=== PATIENT | female | born 1950 | race Caucasian/White ===

== ENCOUNTER 2019-01-30 06:29 | Inpatient (IN) | payer MEDICARE, BC ==
[~2019-01-30] VITALS: Ht 165.1 cm; Wt 77.6 kg
--- NOTE | ~2019-01-30 | PROC ---
[facility] [address] [place] [address] PROCEDURE REPORT Name: DESIREE JAMES Room: [address] IN M.R.#: [id number] Admission: 01/30/19 Attend Phys: Daniel Dos Santos Discharge: 02/01/19 Date of : 48 Report #: [id number] THIS REPORT FOR: //name// For GI report, please see the Provation report in Perceptive 7 content. By: 0649Medical Records Staff JAY /MAYA
[~2019-01-30 06:29] MED LIST: AUGMENTIN 875-1 EACH PO; PERCOCET 5-3251 EACH PO; XANAX 0.5 MG0.5 M1 PO
[2019-01-30 06:30] VITALS: BP 108/65
[2019-01-30 06:56] LABS: ABSOLUTE BASOPHILS 0.1 thou/uL (0.0-0.2); ABSOLUTE EOSINOPHILS 0.1 thou/uL (0.0-0.7); ABSOLUTE LYMPHOCYTES 3.6 thou/uL (0.8-5.3); ABSOLUTE MONOCYTES 0.2 thou/uL (0.0-1.2); ABSOLUTE NEUTROPHILS 2.3 thou/uL (1.6-8.1); BASOPHILS 0.8 %; EOSINOPHILS 1.1 %; HEMATOCRIT 45.7 % (37.0-47.0); HEMOGLOBIN 15.3 gm/dL (12.0-15.0); LYMPHOCYTES 58.2 %; MCH 31.8 pg (26.0-34.0); MCHC 33.4 g/dL (28.0-37.0); MCV 95.1 fL (80.0-100.0); MONOCYTES 2.7 %; MPV 6.9 fl. (7.2-11.1); NUCLEATED RBCS 0 /100WBC; PLATELET COUNT* 341 thou/uL (150-400); POLYS 37.2 %; RBC 4.81 mil/uL (4.20-5.00); RDW-CV 13.7 % (10.5-14.5); WBC 6.2 thou/uL (4.0-11.0)
[2019-01-30 07:05] LABS: ALBUMIN 3.2 g/dL (3.4-5.0); CALCIUM 8.8 mg/dL (8.5-10.1); MAGNESIUM 2.2 mg/dL (1.8-2.4); POTASSIUM 3.7 mmol/L (3.5-5.1); TOTAL BILIRUBIN 0.3 mg/dL (<0.1-1.0); TOTAL PROTEIN 6.8 g/dL (6.4-8.2)
[2019-01-30 07:14] LABS: NT-PRO BRAIN NAT PEPTIDE 141 pg/mL (<300); PHOSPHORUS* 5.3 mg/dL (2.5-4.9); TROPONIN-I LEVEL <0.06 ng/mL (<0.06)
[2019-01-30 07:41] LABS: BE -3.1 mmol/L (-2 to +3); PO2 96.5 mmHg (75.0-100.0)
[2019-01-30 07:42] LABS: PCO2 54.4 mmHg (35.0-45.0)
[2019-01-30 07:45] LABS: pH 7.273 (7.340-7.450)
[2019-01-30 09:15] VITALS: BP 132/96
[2019-01-30 09:19] LABS: URINE BILIRUBIN NEGATIVE (Negative); URINE BLOOD 3+ (Negative); URINE CLARITY CLEAR; URINE COLOR YELLOW; URINE GLUCOSE-RANDOM NEGATIVE (Negative); URINE KETONES NEGATIVE (Negative); URINE LEUKOCYTES-REFLEX NEGATIVE (Negative); URINE NITRITE-REFLEX NEGATIVE (Negative); URINE PROTEIN 1+ (Negative); URINE SPECIFIC GRAVITY <= 1.005 (1.005-1.030); URINE UROBILINOGEN 0.2 E.U./dl (0.2-1.0)
[2019-01-30 09:26] LABS: SQUAMOUS 0-3 Few /LPF (0-3)
[2019-01-30 09:27] LABS: BACTERIA-REFLEX None Seen /HPF (None Seen); CASTS None Seen /LPF (None Seen); CRYSTALS None Seen /LPF (None Seen); URINE RBC >20 Many /HPF (0-2); URINE WBC-REFLEX 0-5 Rare /HPF (0-5)
[2019-01-30 09:30] VITALS: BP 136/73
[2019-01-30] MEDS ORDERED: NICOTINE TRANSD21 M1 TRANSDERM (10:22)
[2019-01-30 12:00] VITALS: BP 137/86
--- NOTE | 2019-01-30 13:55 | EKG ---
[place] [address] ELECTROCARDIOGRAM REPORT Name: DESIREE JAMES Room: [address] ADM IN M.R.#: [id number] Admission: 01/30/19 Attend Phys: Daniel Dos Santos Discharge: Date of : 48 Report #: [id number] THIS REPORT FOR: //name// [facility] ED Test Date: 2019-01-30 Test Time: 06:31:26 Pat Name: DESIREE JAMES Department: Room: [facility] Gender: F Manager Provider Relations: See BRAGG : 1950 Requested By: Carl Esteban Order Number: [id number] Ervin MD: Santosh Borrego Measurements Intervals [place] Rate: 126 P: 79 DC: 126 QRS: -42 QRSD: 79 T: 61 QT: 311 QTc: 451 Interpretive Statements Sinus tachycardia Consider right atrial enlargement Left axis deviation Abnormal R-wave progression, early transition Borderline ST depression, diffuse leads No previous ECG available for comparison Electronically Signed On 01-30-2019 13:55:16 CDT by Santosh Borrego [email or web address] <ELECTRONICALLY SIGNED> By: Santosh Borrego MD, [facility] 01/30/19 1355 0631 Santosh Borrego MD, [facility] /EPI
[2019-01-30 14:01] VITALS: BP 154/79
[2019-01-30 18:24] LABS: HEMATOCRIT 40.6 % (37.0-47.0); HEMOGLOBIN 13.6 gm/dL (12.0-15.0); MCH 31.5 pg (26.0-34.0); MCHC 33.4 g/dL (28.0-37.0); MCV 94.4 fL (80.0-100.0); MPV 6.8 fl. (7.2-11.1); RBC 4.31 mil/uL (4.20-5.00); RDW-CV 13.6 % (10.5-14.5); WBC 16.9 thou/uL (4.0-11.0)
[2019-01-30 18:31] LABS: CALCIUM 8.5 mg/dL (8.5-10.1); CREATININE 0.8 mg/dL (0.6-1.3)
[2019-01-30 18:32] LABS: POTASSIUM 4.7 mmol/L (3.5-5.1)
[2019-01-30 22:00] VITALS: BP 150/62
[2019-01-31] VITALS: BP 130/57
[2019-01-31 02:01] VITALS: BP 163/77
[2019-01-31 04:00] VITALS: BP 133/57
[2019-01-31 05:21] LABS: HEMATOCRIT 37.5 % (37.0-47.0); HEMOGLOBIN 12.5 gm/dL (12.0-15.0); MCH 31.4 pg (26.0-34.0); MCHC 33.2 g/dL (28.0-37.0); MCV 94.6 fL (80.0-100.0); MPV 6.9 fl. (7.2-11.1); RBC 3.97 mil/uL (4.20-5.00); RDW-CV 13.8 % (10.5-14.5); WBC 14.7 thou/uL (4.0-11.0)
[2019-01-31 05:49] LABS: CALCIUM 8.5 mg/dL (8.5-10.1); CREATININE 0.6 mg/dL (0.6-1.3); POTASSIUM 3.9 mmol/L (3.5-5.1)
[2019-01-31 06:00] VITALS: BP 141/67
[2019-01-31 20:00] VITALS: BP 157/60
[2019-02-01 03:29] LABS: HEMATOCRIT 34.1 % (37.0-47.0); HEMOGLOBIN 11.3 gm/dL (12.0-15.0); MCH 31.3 pg (26.0-34.0); MCHC 33.2 g/dL (28.0-37.0); MCV 94.1 fL (80.0-100.0); MPV 7.2 fl. (7.2-11.1); RBC 3.62 mil/uL (4.20-5.00); RDW-CV 13.8 % (10.5-14.5)
[2019-02-01 08:00] VITALS: BP 148/76
[2019-02-01] MEDS ORDERED: VENTOLIN HFA 1818 GM INH (10:30)
[2019-02-01] MEDS ORDERED: SYMBICORT160 MCG/4. INH (10:30)
[2019-02-01] MEDS ORDERED: PREDNISONE 10 M10 MG PO (10:32)
[2019-02-01] MEDS ORDERED: FLAGYL500 M1 PO (10:33)
[2019-02-01] MEDS ORDERED: CIPRO500 MG PO (10:33)
[2019-02-01] MEDS ORDERED: PROTONIX40 M1 PO (10:33)
[2019-02-01] MEDS ORDERED: LIPITOR 20 MG T20 M1 PO (10:34)
[2019-02-01] MEDS ORDERED: ASPIRIN EC81 M1 PO (10:35)
[2019-02-01] MEDS ORDERED: MIRALAX17 GM PO (10:38)
[2019-02-01 11:34] VITALS: BP 148/76
--- NOTE | 2019-02-01 18:10 | CON ---
[facility] [address] [place] [address] CONSULTATION Name: DESIREE JAMES Room: [address] IN M.R.#: [id number] Admission: 01/30/19 Attend Phys: Daniel Dos Santos Discharge: 02/01/19 Date of : [birth year] Report #: [id number] THIS REPORT FOR: //name// CC: Nick Esteban HISTORY OF PRESENT ILLNESS: This is a pleasant 69-year-old female with no significant past medical history, who presented to the ER after experiencing shortness of breath. The patient reports that she initially woke up yesterday to use the restroom and noted some burning micturition. She proceeded to take Keflex that she already had at her home. This was followed by rash noted in the upper extremities and shortness of breath. The patient was then brought to the hospital via EMS and EMS administered her dose of epinephrine. The GI service has been consulted because during the course of admission, the patient began developing abdominal cramps and hematochezia. The patient was initially admitted to the telemetry floor and since has been subsequently transferred to the ICU. The patient reports that the abdominal pain is located in the lower abdomen, cramping in nature and is severe in intensity. The patient has had about 4-5 bloody bowel movements. The patient denies similar episodes in the past. The patient has never had a colonoscopy in the past. The patient denies any nausea, vomiting, hematemesis or recent weight loss. PAST MEDICAL HISTORY: Nonsignificant. PAST SURGICAL HISTORY: Remote history of appendectomy. SOCIAL HISTORY: The patient smokes 1 pack of cigarettes a day and has been doing so every day for the last 50 years. She denies significant alcohol or recreational drug use. FAMILY HISTORY: There is no family history of colon cancer. REVIEW OF SYSTEMS: Comprehensive 10-point review of systems is negative, except for what is mentioned in the HPI. PHYSICAL EXAMINATION: VITAL SIGNS: Temperature 37.1, pulse rate 84, respirations 22, blood pressure 163/77 and pulse ox 97%. GENERAL: The patient is alert, awake and oriented x 3. HEENT: Pupils are equal, round and reactive to light and accommodation. Mucous membranes are moist. There is no congestion. LUNGS: Clear to auscultation bilaterally. CARDIOVASCULAR EXAMINATION: Rate and rhythm regular, S1, S2 present. ABDOMEN: Soft. There is mild tenderness to palpation in the suprapubic and left lower quadrant region. EXTREMITIES: Warm, well perfused. There is no edema. SKIN: [place] [address] CONSULTATION Name: DESIREE JAMES MIKE Room: [address] IN ..#: [id number] Admission: 01/30/19 Attend Phys: Daniel Dos Santos Discharge: 02/01/19 Date of : 48 Report #: [id number] LABORATORY DATA: Hemoglobin on admission 15.3; subsequently, it is 13.6. Platelet count 323,000, WBC count 16.9. Sodium 141, potassium 3.9, chloride 107, bicarbonate 27, BUN 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 ASSESSMENT AND PLAN: This is a pleasant 69-year-old female with past medical history significant for smoking, who initially presented with rash and shortness of breath secondary to Keflex use. Over the course of admission, the patient developed abdominal pain, cramps and hematochezia. She has no prior history of colonoscopy. I will proceed with colonoscopy and make further recommendations based on the results of this. Based on her clinical evaluation, it appears that she has ischemic colitis. Colon cancer and inflammatory bowel disease appear to be a relatively less likely diagnoses at this time. <ELECTRONICALLY SIGNED> By: Ankur Deleon MD 02/01/19 1810 [id number] Deleon MD /nt
--- NOTE | 2019-02-02 11:09 | PATH ---
[facility] [address] [place] [address] PATHOLOGY RPT PROCEDURE Name: NELLIE JAMES Room: [address] IN M.R.#: [id number] Admission: 01/30/19 Date of : 48 Discharge: 02/01/19 Report #: [id number] Path Case #: [id number] [facility] Accession Number: [id number] . 01 Material submitted: . DESCENDING COLON R/O ISCHEMIC COLITIS . 01 Clinical history: . Rule out ischemic colitis . 02 Diagnosis: Colonic mucosa, "descending colon, biopsy": - Changes consistent with acute ischemic colitis. . (SHA:mmjenae; 02/01/2019) QLM/02/01/2019 . 02 Comment: Fragments of colonic mucosa reveals acute ulceration with necrotic acute inflammatory exudate. The lamina propria is hyalinized with small miniature glands. These findings are consistent with acute ischemic colitis. . (SHA:mml; 02/01/2019) . 02 Electronically signed: . Orlin Still MD, Pathologist NPI- [id number] . 01 Gross description: . Received in formalin labeled "Nellie aJmes, descending colon," are 4 segments of bowen soft tissue measuring 1.0 x 0.6 x 0.2 cm in aggregate dimensions and ranging from 0.2 to 0.3 cm in maximum dimension. The specimen is submitted entirely in cassette A1. (TSD; 01/31/2019) TOB/TOB . 02 Microscopic: . . . 02 Pathologist provided ICD-10: K55.9 . 02 CPT . 654458 Specimen Comment: A courtesy copy of this report has been sent to Specimen Comment: [phone], , . Specimen Comment: Report sent to ,DR ANGULO / [place] [address] PATHOLOGY RPT PROCEDURE Name: NELLIE JAMES Room: [address] IN [facility].#: [id number] Admission: 01/30/19 Date of : 48 Discharge: 02/01/19 Report #: [id number] Path Case #: [id number] Specimen Comment: A duplicate report has been generated due to demographic updates. Performed at: [address], [place], [place] [id number] MD Jaya Ricardo MD Phone: [phone] Performed at: 02 [facility] [address], [place], [place] [id number] MD Ramo Bedolla MD Phone: [phone]
== END 2019-02-01 12:15 | disposition home or self-care (01) | DRG 915 ==
LOC: M.ERS 06:29 → M.TBA-ER 07:56 → M.ICU 07:56
PROVIDERS: Internal Medicine; Internal Medicine Gastroenterology; Personal Emergency Response Attendant; ADMIT Internal Medicine
PROC: 0DBM8ZX Excision of Descending Colon, Via Natural or Artificial Opening Endoscopic, Diagnostic (ICD-10-PCS; principal; 2019-01-31)
DX: T88.6XXA Anaphylactic reaction due to adverse effect of correct drug or medicament properly administered, initial encounter (principal); J96.00 Acute respiratory failure, unspecified whether with hypoxia or hypercapnia; K55.9 Vascular disorder of intestine, unspecified; K63.3 Ulcer of intestine; K55.1 Chronic vascular disorders of intestine; K92.1 Melena; T36.1X5A Adverse effect of cephalosporins and other beta-lactam antibiotics, initial encounter; R31.9 Hematuria, unspecified; F17.210 Nicotine dependence, cigarettes, uncomplicated; I25.10 Atherosclerotic heart disease of native coronary artery without angina pectoris; Z71.6 Tobacco abuse counseling; Y92.89 Other specified places as the place of occurrence of the external cause; Z87.440 Personal history of urinary (tract) infections; Z90.49 Acquired absence of other specified parts of digestive tract; Z79.899 Other long term (current) drug therapy; Z88.8 Allergy status to other drugs, medicaments and biological substances